=== PATIENT | male | born 1975 | race Caucasian/White ===

== ENCOUNTER → 2016-12-18 | Outpatient (CLI) | payer OTHER ==
[2016-12-18 17:30] LABS: INR 1.01
[2016-12-18 18:08] LABS: ALBUMIN 4.2 GM/DL (3.2-5.2); ALBUMIN/GLOBULIN RATIO 1.31 (1.00-1.93); ALKALINE PHOSPHATASE 129 U/L (45-117); ALT/SGPT 97 U/L (12-78); AST/SGOT 51 U/L (15-37); BILIRUBIN,DIRECT 0.1 MG/DL (0.0-0.2); BILIRUBIN,TOTAL 0.4 MG/DL (0.2-1.0); TOTAL IRON BINDING CAPACITY 367 UG/DL (250-450); TOTAL PROTEIN 7.4 GM/DL (6.4-8.2)
== END ==
LOC: M LAB 15:58
PROVIDERS: ATTEND Internal Medicine Gastroenterology
DX: R93.3 Abnormal findings on diagnostic imaging of other parts of digestive tract (principal)

== ENCOUNTER → 2017-01-03 | Outpatient (REF) | payer OTHER | LOC: M SMT 13:10 | PROVIDERS: ATTEND Urology | DX: Z30.2 Encounter for sterilization (principal) ==

== ENCOUNTER → 2017-02-16 | Outpatient (CLI) | payer OTHER ==
[2017-02-16 17:35] LABS: BASO % 0.4 % (0.0-1.0); EOS # 0.4 10^3/uL (0.0-0.50); EOS % 3.9 % (0.0-3.0); IMMATURE GRANULOCYTE % 0.2 % (0-0); LYMPH # 3.2 10^3/uL (1.5-4.5); LYMPH % 34.9 % (24.0-44.0); MEAN CORPUSCULAR HEMOGLOBIN 29.6 pg (27.0-33.0); MEAN CORPUSCULAR VOLUME 87.2 fl (80.0-96.0); MONO # 0.5 10^3/uL (0.0-0.8); MONO % 5.9 % (0.0-5.0); NEUTROPHILS # 4.9 10^3/uL (1.8-7.7); NEUTROPHILS % 54.7 % (36.0-66.0); PLATELET COUNT, AUTOMATED 279 10^3/uL (150-450); RED CELL DISTRIBUTION WIDTH 11.9 % (11.5-14.5)
[2017-02-16 17:48] LABS: INR 0.99
== END ==
LOC: M LAB 16:54
PROVIDERS: ATTEND Internal Medicine Gastroenterology
DX: R94.5 Abnormal results of liver function studies (principal)

== ENCOUNTER → 2017-02-19 | Outpatient (CLI) | payer OTHER ==
[~2017-02-19] MED LIST: LIDOCAINE 1% MDV 20ML VIAL As Ordered ONE
--- NOTE | 2017-02-19 09:44 | REP ---
ULTRASOUND GUIDED LIVER BIOPSY: The procedure was performed by JAIR Henry, under the direct supervision of Dr. Lacy. The procedure along with its risks, benefits and complications were discussed with the patient prior to the examination. Informed consent was obtained both verbally and written. Following universal protocol, patient and site verification was performed with a time out prior to the procedure. The patient was positioned in a supine position and an appropriate site within the liver was located using real-time sonography. The skin was marked, prepped and draped in the usual sterile fashion. 1% Xylocaine was used to achieve local infiltrative anesthesia. A 20-gauge Temno spring loaded biopsy device was advanced to the area of interest. A total of four core biopsy specimens were obtained with post-fire imaging documenting needle placement for each pass. The specimens were placed in formalin and will be sent to the lab for further evaluation. Results pending. Following the procedure, the wound was cleaned and compressed. A soft dressing was applied to the needle entry site. The patient was given post biopsy instructions. Patient tolerated the procedure well and had no immediate complications. IMPRESSION: Uncomplicated ultrasound guided core liver biopsy. Pathology pending. Reviewed by JAIR De León 02/19/2017 10:34 AEdited and Signed by Foreign Lacy MD 02/19/2017 04:28 P
== END ==
LOC: M RADPRO 08:05
PROVIDERS: ATTEND Internal Medicine Gastroenterology
DX: R94.5 Abnormal results of liver function studies (principal); R93.3 Abnormal findings on diagnostic imaging of other parts of digestive tract; Z79.899 Other long term (current) drug therapy; Z79.82 Long term (current) use of aspirin

== ENCOUNTER → 2017-12-01 | Outpatient (REF) | payer OTHER ==
[2017-12-01 18:37] LABS: BASO % 0.4 % (0.0-1.0); EOS # 0.4 10^3/uL (0.0-0.50); EOS % 5.8 % (0.0-3.0); HEMATOCRIT 44.4 % (42.0-52.0); HEMOGLOBIN 15.1 g/dl (13.5-17.5); IMMATURE GRANULOCYTE % 0.3 % (0-3.0); LYMPH # 3.3 10^3/uL (1.5-4.5); LYMPH % 46.2 % (24.0-44.0); MEAN CORPUSCULAR HEMOGLOBIN 30.1 pg (27.0-33.0); MEAN CORPUSCULAR VOLUME 88.4 fl (80.0-96.0); MONO # 0.6 10^3/uL (0.0-0.8); MONO % 8.3 % (0.0-5.0); NEUTROPHILS # 2.8 10^3/uL (1.8-7.7); PLATELET COUNT, AUTOMATED 286 10^3/uL (150-450); RED BLOOD COUNT 5.02 10^6/uL (4.30-6.10); WHITE BLOOD COUNT 7.1 10^3/uL (4.0-10.0)
[2017-12-01 18:58] LABS: ALBUMIN 4.1 GM/DL (3.2-5.2); ALBUMIN/GLOBULIN RATIO 1.21 (1.00-1.93); ALKALINE PHOSPHATASE 128 U/L (45-117); ALT/SGPT 48 U/L (12-78); ANION GAP 6 MEQ/L (8-16); AST/SGOT 23 U/L (7-37); BILIRUBIN,TOTAL 0.4 MG/DL (0.2-1.0); BLOOD UREA NITROGEN 13 MG/DL (7-18); CALCIUM LEVEL 8.9 MG/DL (8.5-10.1); CARBON DIOXIDE LEVEL 28 MEQ/L (21-32); CHLORIDE LEVEL 109 MEQ/L (98-107); CHOLESTEROL LEVEL 147 MG/DL (<200); CHOLESTEROL RISK RATIO 3.585 (<5); CREATININE FOR GFR 1.04 MG/DL (0.70-1.30); GLOMERULAR FILTRATION RATE > 60.0 (>60); GLUCOSE, FASTING 102 MG/DL (70-100); HDL CHOLESTEROL 41 MG/DL (>40); NON-HDL-C 106 MG/DL; POTASSIUM SERUM 4.5 MEQ/L (3.5-5.1); SODIUM LEVEL 143 MEQ/L (136-145); TOTAL PROTEIN 7.5 GM/DL (6.4-8.2); TRIGLYCERIDES LEVEL 135 MG/DL (<150)
[2017-12-03 09:10] LABS: TOTAL 25(OH) VITAMIN D 29.4 NG/ML (30.0-100.0)
== END ==
LOC: M SFHCADAM 11:33
DX: K76.0 Fatty (change of) liver, not elsewhere classified (principal); F17.290 Nicotine dependence, other tobacco product, uncomplicated; E66.9 Obesity, unspecified

== ENCOUNTER → 2017-12-11 | Outpatient (CLI) | payer OTHER | LOC: M ADAMS 16:18 | DX: M25.552 Pain in left hip (principal); M25.551 Pain in right hip | CPT/HCPCS: 73502; 73521 ==

== ENCOUNTER → 2019-02-21 | Outpatient (REF) | payer OTHER ==
[2019-02-21 12:46] LABS: BASO # 0.1 10^3/uL (0.0-0.2); BASO % 0.8 % (0.0-1.0); EOS # 0.3 10^3/uL (0.0-0.5); EOS % 5.8 % (0.0-3.0); HEMATOCRIT 44.3 % (42.0-52.0); HEMOGLOBIN 15.3 g/dl (13.5-17.5); LYMPH # 2.2 10^3/uL (1.5-5.0); LYMPH % 37.4 % (24.0-44.0); MEAN CORPUSCULAR HEMOGLOBIN 30.8 pg (27.0-33.0); MEAN CORPUSCULAR HGB CONC 34.5 g/dl (32.0-36.5); MEAN CORPUSCULAR VOLUME 89.3 fl (80.0-96.0); MONO # 0.5 10^3/uL (0.0-0.8); MONO % 8.7 % (0.0-5.0); NEUTROPHILS # 2.8 10^3/uL (1.5-8.5); NEUTROPHILS % 47.1 % (36.0-66.0); PLATELET COUNT, AUTOMATED 285 10^3/uL (150-450); RED BLOOD COUNT 4.96 10^6/uL (4.30-6.10); WHITE BLOOD COUNT 5.9 10^3/uL (4.0-10.0)
[2019-02-21 13:09] LABS: ALBUMIN 4.4 GM/DL (3.2-5.2); ALT/SGPT 71 U/L (12-78); BILIRUBIN,TOTAL 0.5 MG/DL (0.2-1.0); BLOOD UREA NITROGEN 12 MG/DL (7-18); CARBON DIOXIDE LEVEL 31 MEQ/L (21-32); CHLORIDE LEVEL 104 MEQ/L (98-107); CHOLESTEROL LEVEL 129 MG/DL (<200); CHOLESTEROL RISK RATIO 3.146 (<5); CREATININE FOR GFR 1.11 MG/DL (0.70-1.30); GLOMERULAR FILTRATION RATE > 60.0 (>60); GLUCOSE, FASTING 115 MG/DL (70-100); HDL CHOLESTEROL 41 MG/DL (>40); LDL CHOLESTEROL 63 MG/DL (<100); NON-HDL-C 88 MG/DL; POTASSIUM SERUM 4.5 MEQ/L (3.5-5.1); SODIUM LEVEL 140 MEQ/L (136-145); TRIGLYCERIDES LEVEL 126 MG/DL (<150)
[2019-02-23 00:06] LABS: TESTOSTERONE FREE (DIRECT) 11.2 pg/mL (6.8-21.5)
== END ==
LOC: M SFHCADAM 09:40
PROVIDERS: ATTEND Physician Assistant Medical
DX: K76.0 Fatty (change of) liver, not elsewhere classified (principal); F17.290 Nicotine dependence, other tobacco product, uncomplicated; E66.9 Obesity, unspecified

== ENCOUNTER → 2019-03-29 | Outpatient (CLI) | payer OTHER ==
[2019-03-31 09:16] LABS: FOLLICLE STIMULATING HORMONE 5.4 mIU/mL (1.4-18.1); PROLACTIN 12.3 NG/ML (2.1-17.7)
[2019-04-02 16:09] LABS: TESTOSTERONE %FREE+WEAKLY BOUN 53.8 % (9.0-46.0); TESTOSTERONE FREE+WEAKLY BOUND 186.7 ng/dL (40.0-250.0); TESTOSTERONE TOTAL 347 ng/dL (264-916)
== END ==
LOC: M ADAMS 09:43
PROVIDERS: ATTEND Nurse Practitioner Family
DX: E29.1 Testicular hypofunction (principal)

== ENCOUNTER → 2019-04-12 | Outpatient (CLI) | payer OTHER | LOC: M ADAMS 08:38 | PROVIDERS: ATTEND Nurse Practitioner Family | DX: E29.1 Testicular hypofunction (principal) ==

== ENCOUNTER 2019-05-25 00:23 | Inpatient (IN) | payer OTHER ==
[2019-05-25] VITALS (8 sets, daily range): BP systolic 103–127; BP diastolic 53–73
[~2019-05-25] VITALS: Ht 175.3 cm; Wt 99.9 kg
[2019-05-25] MEDS ORDERED: ATOR40TA75 PO (00:28)
[2019-05-25] MEDS ORDERED: NORCO, ANEXSIA 5/325MG TABLET (HYDROcodone/ACETAMINOPHEN) PO ONE (01:30)
[2019-05-25] MEDS ORDERED: LIDOCAINE 2% MDV 20 ML VIAL SC ONE (01:45)
[2019-05-25] MEDS ORDERED: FISH1000 PO (02:51)
[2019-05-25] MEDS ORDERED: VITA400C53 PO (02:51)
[2019-05-25] MEDS ORDERED: COQ1200C3 PO (02:51)
[2019-05-25] MEDS ORDERED: MULTCAP PO (02:51)
[2019-05-25 03:37] LABS: BASO # 0.1 10^3/uL (0.0-0.2); BASO % 0.6 % (0.0-1.0); EOS # 0.3 10^3/uL (0.0-0.5); EOS % 2.6 % (0.0-3.0); HEMATOCRIT 42.8 % (42.0-52.0); HEMOGLOBIN 14.3 g/dl (13.5-17.5); LYMPH # 2.2 10^3/uL (1.5-5.0); LYMPH % 20.5 % (24.0-44.0); MEAN CORPUSCULAR HEMOGLOBIN 29.2 pg (27.0-33.0); MEAN CORPUSCULAR HGB CONC 33.4 g/dl (32.0-36.5); MEAN CORPUSCULAR VOLUME 87.5 fl (80.0-96.0); MONO # 0.5 10^3/uL (0.0-0.8); MONO % 4.6 % (0.0-5.0); NEUTROPHILS # 7.5 10^3/uL (1.5-8.5); NEUTROPHILS % 71.4 % (36.0-66.0); PLATELET COUNT, AUTOMATED 296 10^3/uL (150-450); RED BLOOD COUNT 4.89 10^6/uL (4.30-6.10); WHITE BLOOD COUNT 10.5 10^3/uL (4.0-10.0)
[2019-05-25 03:54] LABS: ALBUMIN 4.4 GM/DL (3.2-5.2); ALT/SGPT 70 U/L (12-78); BILIRUBIN,TOTAL 0.3 MG/DL (0.2-1.0); BLOOD UREA NITROGEN 13 MG/DL (7-18); CALCIUM LEVEL 9.1 MG/DL (8.5-10.1); CARBON DIOXIDE LEVEL 24 MEQ/L (21-32); CHLORIDE LEVEL 107 MEQ/L (98-107); CREATININE FOR GFR 1.12 MG/DL (0.70-1.30); GLOMERULAR FILTRATION RATE > 60.0 (>60); GLUCOSE, FASTING 145 MG/DL (70-100); POTASSIUM SERUM 3.9 MEQ/L (3.5-5.1); SODIUM LEVEL 139 MEQ/L (136-145); TOTAL PROTEIN 7.5 GM/DL (6.4-8.2)
--- NOTE | 2019-05-25 04:14 | REPVR ---
PROCEDURE INFORMATION: Exam: CT Right Lower Extremity Without Contrast, Ankle Exam date and time: 05/25/2019 3:09 AM Age: 43 years old Clinical indication: Injury or trauma; Fall; Initial encounter; Fracture, traumatic; Other: Trimal fracture; Ankle; Right; Trimalleolar TECHNIQUE: Imaging protocol: CT of the Right lower extremity without contrast was performed. Exam focused on the ankle. Radiation optimization: All CT scans at this facility use at least one of these dose optimization techniques: automated exposure control; mA and/or kV adjustment per patient size (includes targeted exams where dose is matched to clinical indication); or iterative reconstruction. COMPARISON: CR Ankle, Ap-Lat RIGHT 05/25/2019 2:53 AM FINDINGS: Bones/joints: There is a splint in position along the dorsal aspect of the distal calf and ankle. There is a comminuted coronally oriented mildly distracted and displaced fracture of the posterior distal tibia which communicates with a mildly displaced fracture of the medial malleolus. There is a mildly displaced and mildly angulated fracture of the distal fibular diaphysis with mild posterior angulation. There is widening of the lateral aspect of the tibiotalar joint with mild posterior subluxation of the talar dome. Numerous small fracture fragments are noted within the joint space. Soft tissues: Subcutaneous edema is noted about the ankle. There is gas in the soft tissues anteriorly which may reflect communication with the skin surface. IMPRESSION: Trimalleolar fracture of the right ankle with widening of the lateral tibiotalar joint and mild posterior subluxation of the talar dome relative to the distal tibia. Electronically signed by: Jose Raul Maldonado On 05/25/2019 04:13:44 AM
[2019-05-25] MEDS ORDERED: oxyCODONE 5MG TAB PO PRN (04:45)
[2019-05-25] MEDS: NS 1,000 ML IV SCH ×2 (05:17→13:49)
[2019-05-25] MEDS: MORPHINE 2 MG/ML 1ML VIAL (J2270) IV PRN (05:17)
[2019-05-25] MEDS ORDERED: ceFAZolin SOD 2 GM in IV 1 EA IV ONE (06:00)
--- NOTE | 2019-05-25 06:40 | ECGEPIP ---
[facility] - ED Test Date: 2019-05-25 Pat Name: CHUNG COSME Department: Room: [place] [address] Gender: Male Machine Dyer: sanjuanita : [id number] Requested By: NORAH LOZOYA PA-C Order Number: [id number] Reading MD: Smooth Leigh Measurements Intervals Mathews Rate: 85 P: 57 NV: 137 QRS: -6 QRSD: 102 T: 42 QT: 346 QTc: 412 Interpretive Statements SINUS RHYTHM NO PRIOR ECG FOR COMPARISON Electronically Signed on 05-25-2019 6:40:49 EST by Smooth Leigh
[2019-05-25] MEDS: oxyCODONE 5MG TAB PO PRN ×2 (07:27→12:16)
--- NOTE | 2019-05-25 10:56 | REP ---
RIGHT ANKLE, COMPLETE: 05/25/2019. Clinical history: Trauma. Findings: No prior study. The patient did have a concurrent tibia-fibula. Four views show a trimalleolar fracture with posterior dislocation of the talus on the tibial plafond. Distal fibular fracture with apex anterior angulation. That fracture is comminuted. Some comminution of the medial malleolar fracture. Posterior malleolar fragment also noted. The mortise joint grossly symmetric in width on the AP view, although the talus is dislocated. No talar dome osteochondral defect or fracture. Subtalar joints intact. A few small ossicles overlie the dorsal aspect talonavicular joint that may reflect old injury. No other finding. Impression: 1. Trimalleolar fracture dislocation with talus dislocated posteriorly and fracture apex angulation of the distal fibula is anterior. Electronically Signed by Donovan Laura MD 05/25/2019 08:22 P
--- NOTE | 2019-05-25 10:58 | REP ---
RIGHT TIBIA-FIBULA: 05/25/2019. Comparison: Right ankle done this same date. Clinical history: Trimalleolar. Fracture/dislocation noted on the ankle series. Findings: Four views show comminuted fracture distal fibular shaft with butterfly fragment posterior and anterior apex angulation of the fracture major fracture fragments. The posterior malleolar fracture and medial malleolar fracture are also noted. No other abnormality. Impression: 1. Trimalleolar ankle fracture/dislocation as described. Electronically Signed by Donovan Laura MD 05/25/2019 08:22 P
--- NOTE | 2019-05-25 11:05 | REP ---
AP LATERAL RIGHT ANKLE: 05/25/2019. Comparison: Fracture series ankle and tibia-fibula earlier this date. Findings: Fiberglass cast material overlies the ankle. There has been reduction of the dislocation and a trimalleolar fracture to a more anatomic alignment. Electronically Signed by Donovan Laura MD 05/25/2019 08:22 P
--- NOTE | 2019-05-25 11:05 | REP ---
CHEST PA AND LATERAL: 05/25/2019. Clinical History: trauma. Ankle fracture/dislocation. Findings: Two views show the lungs well inflated and without infiltrate, effusion, atelectasis or mass. The heart, mediastinal and hilar contours are normal. Aorta and airway intact. Bony thorax unremarkable. Impression: 1. Negative chest. Electronically Signed by Donovan Laura MD 05/25/2019 08:23 P
--- NOTE | 2019-05-25 12:24 | HPE ---
DATE OF ADMISSION: 05/25/2019 CHIEF COMPLAINT: Joint and ankle pain. HISTORY OF PRESENT ILLNESS: The patient presents today after being under the influence of alcohol, was out dancing when he had a slip and fall and immediately appreciated at that time sharp pain localized to the right ankle with inability to weight bear. The pain was made worse with range of motion and movement. There is obvious deformity. Pain was only improved with pain medications and immobilization. Patient denies any pain elsewhere. Is sharp pain of 10/10, localized globally about the ankle with clear deformity and swelling. Denies nausea or vomiting. Complete 10-system review with pertinent positives and negatives as per HPI. PAST MEDICAL HISTORY: Obstructive sleep apnea (BERTO). Hyperlipidemia. MEDICATIONS: The patient is currently only on a statin. ALLERGIES: ERYTHROMYCIN, stating gets a rash and breathing issues. PAST SURGICAL HISTORY: Vasectomy. SOCIAL HISTORY: State occasional alcohol use once every few weeks and smokes about 1/2 pack a day. Denied any illicit drug use. PHYSICAL EXAMINATION: Patient is awake, alert and oriented, well dressed, appropriate affect. Breathing unlabored on room air. Normocephalic, atraumatic. Right lower extremity: Obvious deformity. Skin is intact. Significant swelling. Posterior tibial pulses 2+,intact extensor hallucis longus (EHL), flexor hallucis longus (FHL), motor function. Sensation intact to light tough in superficial, peroneal, deep peroneal, sural, saphenous and tibial distributions. No tenderness to palpation about the knee. Left lower extremity: No tenderness to palpation throughout the entire leg. Positive EHL relative to the gastroc motor function. Sensation intact to light touch in superficial, peroneal, deep peroneal, sural, saphenous and tibial distributions. Positive EHL relative to tibia and gastroc motor function. Skin is intact post. tib 2+ regular rate. Bilateral upper extremities: No tenderness to palpation, full active range of motion of shoulders, elbows, and wrists. Skin intact. 2+ radial pulses. Sensation intact to light touch superficial, center edge, radial nerve, median nerve and ulna. Positive anterior interosseous nerve (AIN), posterior interosseous nerve (PIN) on the motor function. IMAGING REVIEWED: Tibia and fibula x-rays along with ankle demonstrating trimalleolar fracture/dislocation of the ankle. He suffered a right trimalleolar fracture/dislocation of his ankle. This is an unstable injury that will require closed reduction here in the ER along with operative intervention. We discussed the risks and benefits of this including but not limited to infection, damage to surrounding structures, incomplete relief, malunion, nonunion. Patient consented and wished to proceed. We also gave the patient a 20 mL intraarticular lidocaine block with 2% to the ankle joint. We then reduced the ankle and placed a short leg splint. Saw reduction films, demonstrated adequate reduction at this time. Patient will be admitted to my service and transferred to the orthopedic floor. He will work on aggressive elevation and pain control. Will hold off on DVT prophylaxis as we plan on having surgical intervention later today, but will start this postoperatively. He will have compression devices on his left lower extremity. He is nothing by mouth (npo) and planned for surgery. We are getting a CT scan for surgical planning of his right ankle along with preoperative lab work and imaging. BRYN
[2019-05-25] MEDS ORDERED: fentaNYL 100 MCG/2 ML INJECTION (J3010) As Ordered ONE ×2 (15:22→16:48)
[2019-05-25] MEDS ORDERED: MIDAZOLAM INJ 2 MG/2 ML VIAL (J2250) As Ordered ONE ×2 (15:22→16:48)
[2019-05-25] MEDS ORDERED: ceFAZolin 1GM INJ (J0690 PER 500MG) As Ordered ONE (16:03)
[2019-05-25] MEDS: fentaNYL 100 MCG/2 ML INJECTION (J3010) IV PRN ×2 (16:05→16:12)
[2019-05-25] MEDS: MIDAZOLAM INJ 2 MG/2 ML VIAL (J2250) IV PRN ×2 (16:05→16:12)
[2019-05-25] MEDS ORDERED: METOCLOPRAMIDE INJ 10MG/2ML VIAL (J2765) As Ordered ONE (16:48)
[2019-05-25] MEDS ORDERED: propofoL 200 MG/20 ML VIAL As Ordered ONE ×2 (16:48→18:59)
[2019-05-25] MEDS ORDERED: dexameTHASONE 4 MG/ML 1ML VIAL (J1100) As Ordered ONE (16:48)
[2019-05-25] MEDS ORDERED: ONDANSETRON 4MG/2ML VIAL (J2405) As Ordered ONE (16:48)
[2019-05-25] MEDS ORDERED: LIDOCAINE 2% INJ 100 MG/5 ML SDV (FOR ANES.) As Ordered ONE (16:48)
[2019-05-25] MEDS ORDERED: ceFAZolin 2 GM/D5W 50 ML IV BAG (J0690 PER 500MG) As Ordered ONE (16:57)
[2019-05-25] MEDS ORDERED: ROPIvacaine 0.5% 30 ML INJECTION (J2795 PER 1MG) ONE (18:43)
[2019-05-25] MEDS ORDERED: LIDOCAINE 1% MDV 20ML VIAL ONE (18:43)
[2019-05-25] MEDS ORDERED: dexameTHASONE 10 MG/1 ML VIAL PRES.FREE (J1100) ONE (18:43)
[2019-05-25] MEDS ORDERED: ONDANSETRON 4MG/2ML VIAL (J2405) IV PRN (19:30)
[2019-05-25] MEDS ORDERED: fentaNYL 100 MCG/2 ML INJECTION (J3010) IV PRN (19:30)
[2019-05-25] MEDS ORDERED: MORPHINE 2 MG/ML 1ML VIAL (J2270) IV PRN (19:30)
[2019-05-25] MEDS ORDERED: LR 1,000 ML IV SCH (19:30)
[2019-05-25] MEDS ORDERED: PERCOCET 5MG/325MG TAB PO PRN (19:30)
[2019-05-25] MEDS: NICOTINE 21MG/24HR 1 EA TRANSDERMAL TD SCH (20:50)
[2019-05-26 00:45] VITALS: BP 125/69
[2019-05-26] MEDS: ceFAZolin SOD 1 GM in D5W MINI-BAG PLUS 50 ML IV SCH ×2 (01:06→08:31)
[2019-05-26] MEDS: MORPHINE 2 MG/ML 1ML VIAL (J2270) IV PRN (01:48)
[2019-05-26 02:00] VITALS: BP 123/68
[2019-05-26] MEDS: oxyCODONE 5MG TAB PO PRN ×3 (04:38→12:52)
[2019-05-26 06:00] VITALS: BP 126/70
[2019-05-26] MEDS ORDERED: OXYC-517 PO (06:11)
[2019-05-26] MEDS ORDERED: ASPI-1 PO (06:11)
--- NOTE | 2019-05-26 08:30 | REP ---
C-ARM RIGHT ANKLE COMPLETE: 05/25/2019. Comparison: Acute fracture series 05/25/2019. Post reduction cast study 05/25/2019. Findings: Three images from C-arm fluoroscopy provided to Dr. Chavarria of the orthopedic division for ORIF of a trimalleolar fracture dislocation. Lag screw over the medial malleolar fragment reducing that, two screws in the plate posterior distal tibia and a single screw posterior anterior in the tibial plafond for posterior malleolar fracture reduction and a plate and multiple screws for the distal fibular fracture. All fractures, alignment essentially anatomic. Mortise joint reapproximated. Fluoroscopy time 2 minutes 17 seconds. Electronically Signed by Donovan Laura MD 05/26/2019 09:49 A
[2019-05-26] MEDS: NICOTINE 21MG/24HR 1 EA TRANSDERMAL TD SCH (08:32)
[2019-05-26] MEDS ORDERED: ENOXAPARIN 40 MG/0.4 ML SYRINGE (J1650) SC SCH (09:00)
[2019-05-26] MEDS ORDERED: CEPHALEXIN 500 MG CAP PO ONE ×2 (09:00→13:00)
--- NOTE | 2019-05-26 09:37 | RO ---
DATE OF PROCEDURE: 05/25/2019 PREPROCEDURE DIAGNOSIS: Right trimalleolar ankle fracture dislocation. POSTPROCEDURE DIAGNOSIS: Right trimalleolar ankle fracture dislocation. PROCEDURE: Right open reduction, internal fixation (ORIF) of trimalleolar ankle fracture, including posterior lip. SURGEON: Valdo Chavarria MD REPRODUCTION MACHINE LOADER: None ANESTHESIA: Spinal with peripheral nerve block. COMPLICATIONS: None. TOURNIQUET TIME: Approximately 2 hours. BLOOD LOSS: Minimal. PREOPERATIVE ANTIBIOTICS: 2 grams of Ancef. INDICATION: This is a 44-year-old male that suffered a fracture dislocation. We discussed how this was an unstable injury that required operative intervention. We discussed the risks and benefits, including but not limited to infection, damage to surrounding structures, incomplete relief. The patient expressed understanding and was in agreement with this plan. DESCRIPTION OF PROCEDURE: The patient was brought back to the operating room and placed in supine position. He underwent spinal anesthesia. At this point, he was placed in a prone position. The right leg was then prepped and draped in the usual fashion. We then had a time out confirming the site, side and surgery. Once in agreement, I elevated the tourniquet up to 250 mmHg. I then made a longitudinal incision on the posterior aspect of the fibula for a posterolateral approach to the fibula and posterior tibia. We dissected subcutaneous and identified the superficial peroneal and surreal nerves and preserved them, retracted them out of the way, exposing the fracture of the lateral aspect of the lateral malleolus. We irrigated the wound and sharply debrided it with curettes and 15-blade and irrigation and suction. We then used a combination of pointer points and lobster claws to obtain our reduction, which was confirmed on AP and lateral films. We then placed a 2 cm lag screw. Once this was done, we used a one-third tubular plate from the distal fibula proximally and secured it in place with a working . Then placed remaining screws in place at the cortical with one locking on either end. Once we confirmed in AP and lateral adequate fixation and reduction, we then turned out attention to the posterior malleolus. We incised the lateral component and retracted the peroneal nerve laterally, exposing the EHL. We lifted the EHL to the posterior tibia. We then identified the posterior malleolus fracture. We propped it open and impacted articular surface and reduced it. We then irrigated the wound thoroughly, removing any other debris with a combination of irrigation, suction and 15 blade. We then used a ball spike pusher to reduce the fracture and held it in place with 1.6 K wire. We then placed a 2 cm lag screw, lagging the posterior malleolus to the distal tibia. Once we were happy with this, we placed plate, 4-hold one-third tubular. We were happy with our reduction in both AP and lateral. We then bent the knee and lifted the leg up to make an anterior incision over the medial malleolus. Identified the medial malleolus fracture. Also, the medial malleolar extent to the posterior malleolus. At this point, I felt that it was adequate reduced and secured with our posterior fixation. Therefore, we used a point to point reduction clamp and reduced the anterior corpus in the medial malleolus. We then used a 4-0 cannulated screw size 42 and secured this. We confirmed this on AP and lateral films. We were happy with reduction. At this point, we also stressed to evaluate the syndesmosis. At this point, there was no medial widening or talar tilt. We were happy with our fixation. Final films confirmed adequate reduction and fixation of all three malleoli and the stability of syndesmosis. We irrigated the wound thoroughly. Closed the peroneal fascia with 2-0 Vicryl, subcutaneous tissue with 2-0 Vicryl and subcutaneous tissue on the medial aspect with 2-0 Vicryl. We then closed the skin with daryn. Placed the patient in a posterior slab splint. The patient was awakened from anesthesia and taken to the postanesthesia care unit (PACU) in stable condition. POSTOPERATIVE PLAN: The patient will work on pain control and elevation. He will be non-weightbearing. He will placed on antibiotic prophylaxis. He will be placed on deep vein thrombosis (DVT) prophylaxis. We will see him approximately 2 weeks out for a skin check and staple removal and can move over to a Cam boot, maintaining a non-weightbearing status for an additional 4 weeks, 6 weeks total, but he may work on ankle range of motion in the meantime.
[2019-05-26 14:00] VITALS: BP 128/73
== END 2019-05-26 16:00 | disposition home or self-care (01) | DRG 494 ==
LOC: M ED 00:23 → M ED INP 03:00 → ENRESERV 03:11 → M MS5PR 03:55
PROVIDERS: ADMIT Orthopaedic Surgery Hand Surgery; ATTEND Orthopaedic Surgery Hand Surgery
PROC: 0QSJ04Z Reposition Right Fibula with Internal Fixation Device, Open Approach (ICD-10-PCS; 2019-05-25)
PROC: 0QSG04Z Reposition Right Tibia with Internal Fixation Device, Open Approach (ICD-10-PCS; principal; 2019-05-25 08:30)
DX: S82.851A Displaced trimalleolar fracture of right lower leg, initial encounter for closed fracture (principal); Y93.41 Activity, dancing; Y92.89 Other specified places as the place of occurrence of the external cause; Y99.8 Other external cause status; W18.09XA Striking against other object with subsequent fall, initial encounter; F17.200 Nicotine dependence, unspecified, uncomplicated; G47.33 Obstructive sleep apnea (adult) (pediatric); E78.5 Hyperlipidemia, unspecified; Z79.899 Other long term (current) drug therapy; Z88.1 Allergy status to other antibiotic agents; Z72.89 Other problems related to lifestyle

== ENCOUNTER 2019-06-23 17:43 | Emergency (ER) | payer OTHER ==
[~2019-06-23] VITALS: Ht 175.3 cm; Wt 98.6 kg
[~2019-06-23 17:43] MED LIST changes: +ASPI-1 PO; +ATOR40TA75 PO; +COQ1200C3 PO; +FISH1000 PO; -LIDOCAINE 1% MDV 20ML VIAL As Ordered ONE; +MULTCAP PO; +OXYC-517 PO; +VITA400C53 PO
--- NOTE | 2019-06-23 18:46 | REP ---
Right foot series: Four views. History: Swelling and discoloration. Findings: The patient is status post recent open reduction internal fixation for trimalleolar ankle fracture. No tarsal or metatarsal fracture is appreciated. Impression: Status post open reduction internal fixation screw plating surgery for trimalleolar ankle fracture. No foot fracture is appreciated. Electronically Signed by Leandro Shin MD 06/23/2019 06:37 P
--- NOTE | 2019-06-23 21:22 | REPVR ---
PROCEDURE INFORMATION: Exam: US Duplex Right Lower Extremity Veins, Limited Exam date and time: 06/23/2019 8:45 PM Age: 43 years old Clinical indication: Edema, localized; Lower extremity, right; Prior surgery; Surgery date: 1-6 months; Surgery type: Tib/fib repair; Additional info: Rle swelling; R/O dvt TECHNIQUE: Imaging protocol: Real-time Duplex ultrasound of the Right Lower Extremity with 2-D mcneil scale, color Doppler flow and spectral waveform analysis with image documentation. Limited exam was focused on the right lower extremity veins. COMPARISON: No relevant prior studies available. FINDINGS: Right deep veins: Unremarkable. The common femoral, femoral, proximal profunda femoral and popliteal veins are patent without thrombus. Normal Doppler waveforms. Normal compressibility and/or augmentation response. Right superficial veins: Unremarkable. Saphenofemoral junction is patent without thrombus. Soft tissues: Unremarkable. IMPRESSION: No acute findings. No evidence of deep vein thrombosis. Electronically signed by: Mariposa Agarwal On 06/23/2019 21:22:19 PM
[2019-06-23 22:05] VITALS: BP 128/81
--- NOTE | 2019-06-25 06:35 | CR ---
DATE OF CONSULTATION: 06/23/2019 CHIEF COMPLAINT: Right leg swelling and discoloration. HISTORY OF PRESENT ILLNESS: Patient presented to the emergency room (ER) today after having continued right leg swelling and discoloration. Patient states that his pain is normally controlled. When he is in dependent position, he has increased pain up to a 5-6 out of 10 that is a dull ache in nature, along with increasing discoloration of his foot to blue and purple at times; however, this completely resolves as soon as he elevates. Of note, the patient is postoperative for open reduction and internal fixation (ORIF) of his trimalleolar ankle fracture from 05/25/2019, which was approximately 1 month ago. He denies any fevers, chills, nausea, or vomiting. He is taking [id number] pain medications for pain control. Denies any calf tenderness or trouble breathing or any chest pains. Complete 10-system review was conducted, pertinent positives and negatives in history of present illness (HPI). All other systems negative. PAST MEDICAL HISTORY: Obstructive sleep apnea (BERTO). Hyperlipidemia. Patient is currently only on a statin. ALLERGIES: ERYTHROMYCIN, giving a rash and breathing issues. PAST SURGICAL HISTORY: Vasectomy. SOCIAL HISTORY: Patient occasionally uses alcohol a few times a year. He smokes about a half a pack of cigarettes a day. Denies any illicit drug use. Socially, he lives at home with his . PHYSICAL EXAMINATION: Patient is awake, alert, oriented, well dressed, appropriate affect, breathing well on room air. Normocephalic, atraumatic. Right lower extremity: Incisions are well healed. No surrounding erythema or drainage. He has intact extensor hallucis longus (EHL), flexor hallucis longus (FHL), tibial, and gastroc motor function. Sensation intact to light touch superficial sensory branch of the peroneal, deep peroneal, sural, saphenous, and tibial distributions. No tenderness to palpation. Calf is soft, supple, and nontender. Skin is intact. I was able to see what the patient was talking about when you put the patient in the dependent position, the patient's foot does become an increasing bluish hue that resolves with elevation. Imaging of the foot was completed along with ultrasound that was negative for deep venous thrombosis (DVT) and negative for any acute fracture or dislocation. There remained intact hardware from previous surgery. I discussed with the patient that he is having dependent edema. This is normal after surgery in this sort of injury, that if he is having increasing pain with the dependent position, he is to continue to elevate. Otherwise, he will continue his non-weightbearing status. I will see him in the office as scheduled in approximately 2 weeks where we will hopefully be advancing his weightbearing. We did discuss red flag symptoms, fevers, chills, nausea, vomiting, other signs of systemic illness, in which case he should call the office or return to the ER for further evaluation. Patient expressed understanding and agreements with that plan.
== END 2019-06-23 22:07 | disposition home or self-care (01) ==
LOC: M ED 17:43
DX: R60.9 Edema, unspecified (principal); T88.9XXA Complication of surgical and medical care, unspecified, initial encounter; E78.5 Hyperlipidemia, unspecified; M54.9 Dorsalgia, unspecified; G89.29 Other chronic pain; G47.30 Sleep apnea, unspecified; F17.210 Nicotine dependence, cigarettes, uncomplicated; Z79.899 Other long term (current) drug therapy; Z88.1 Allergy status to other antibiotic agents

== ENCOUNTER → 2020-02-16 | Outpatient (REF) | payer OTHER ==
[2020-02-16 17:41] LABS: BASO # 0.1 10^3/uL (0.0-0.2); BASO % 0.9 % (0.0-1.0); EOS # 0.3 10^3/uL (0.0-0.5); EOS % 3.7 % (0.0-3.0); HEMATOCRIT 44.9 % (42.0-52.0); HEMOGLOBIN 14.8 g/dl (13.5-17.5); LYMPH # 2.8 10^3/uL (1.5-5.0); LYMPH % 39.4 % (24.0-44.0); MEAN CORPUSCULAR HEMOGLOBIN 29.4 pg (27.0-33.0); MEAN CORPUSCULAR VOLUME 89.1 fl (80.0-96.0); MONO # 0.5 10^3/uL (0.0-0.8); MONO % 7.2 % (0.0-5.0); NEUTROPHILS # 3.4 10^3/uL (1.5-8.5); NEUTROPHILS % 48.7 % (36.0-66.0); PLATELET COUNT, AUTOMATED 312 10^3/uL (150-450); RED BLOOD COUNT 5.04 10^6/uL (4.30-6.10)
[2020-02-16 17:49] LABS: ALBUMIN 4.6 GM/DL (3.2-5.2); ALT/SGPT 82 U/L (12-78); BILIRUBIN,TOTAL 0.6 MG/DL (0.2-1.0); BLOOD UREA NITROGEN 11 MG/DL (7-18); CALCIUM LEVEL 9.6 MG/DL (8.5-10.1); CARBON DIOXIDE LEVEL 29 MEQ/L (21-32); CHLORIDE LEVEL 107 MEQ/L (98-107); CHOLESTEROL LEVEL 119 MG/DL (<200); CHOLESTEROL RISK RATIO 3.131 (<5); CREATININE FOR GFR 1.04 MG/DL (0.70-1.30); GLOMERULAR FILTRATION RATE > 60.0 (>60); GLUCOSE, FASTING 87 MG/DL (70-100); HDL CHOLESTEROL 38 MG/DL (>40); LDL CHOLESTEROL 58 MG/DL (<100); NON-HDL-C 81 MG/DL; POTASSIUM SERUM 4.3 MEQ/L (3.5-5.1); SODIUM LEVEL 140 MEQ/L (136-145); TOTAL PROTEIN 7.8 GM/DL (6.4-8.2); TRIGLYCERIDES LEVEL 114 MG/DL (<150)
== END ==
LOC: M SFHCADAM 14:28
PROVIDERS: ATTEND Physician Assistant Medical
DX: G47.33 Obstructive sleep apnea (adult) (pediatric) (principal); F17.290 Nicotine dependence, other tobacco product, uncomplicated; K76.0 Fatty (change of) liver, not elsewhere classified; E66.9 Obesity, unspecified

== ENCOUNTER → 2020-03-22 | Outpatient (CLI) | payer OTHER ==
[2020-03-22 19:50] LABS: BASO # 0.1 10^3/uL (0.0-0.2); BASO % 0.6 % (0.0-1.0); EOS # 0.3 10^3/uL (0.0-0.5); EOS % 3.4 % (0.0-3.0); HEMATOCRIT 43.2 % (42.0-52.0); HEMOGLOBIN 14.2 g/dl (13.5-17.5); LYMPH # 3.3 10^3/uL (1.5-5.0); LYMPH % 34.1 % (24.0-44.0); MEAN CORPUSCULAR HEMOGLOBIN 28.7 pg (27.0-33.0); MEAN CORPUSCULAR HGB CONC 32.9 g/dl (32.0-36.5); MEAN CORPUSCULAR VOLUME 87.4 fl (80.0-96.0); MONO # 0.8 10^3/uL (0.0-0.8); MONO % 8.3 % (0.0-5.0); NEUTROPHILS # 5.1 10^3/uL (1.5-8.5); NEUTROPHILS % 53.3 % (36.0-66.0); PLATELET COUNT, AUTOMATED 298 10^3/uL (150-450); RED BLOOD COUNT 4.94 10^6/uL (4.30-6.10); WHITE BLOOD COUNT 9.5 10^3/uL (4.0-10.0)
[2020-03-22 20:21] LABS: ALBUMIN 4.7 GM/DL (3.2-5.2); ALT/SGPT 65 U/L (12-78); BILIRUBIN,TOTAL 0.7 MG/DL (0.2-1.0); BLOOD UREA NITROGEN 8 MG/DL (7-18); CALCIUM LEVEL 9.9 MG/DL (8.5-10.1); CARBON DIOXIDE LEVEL 28 MEQ/L (21-32); CHLORIDE LEVEL 106 MEQ/L (98-107); GLOMERULAR FILTRATION RATE > 60.0 (>60); GLUCOSE, FASTING 70 MG/DL (70-100); POTASSIUM SERUM 3.8 MEQ/L (3.5-5.1); SODIUM LEVEL 140 MEQ/L (136-145); TOTAL PROTEIN 7.7 GM/DL (6.4-8.2)
[2020-03-24 13:08] LABS: Lyme Disease IgG/IgM Antibodie <0.91 ISR (0.00-0.90); Lyme Disease IgM Ab Quantitati <0.80 index (0.00-0.79)
== END ==
LOC: M WUC 18:26
PROVIDERS: ATTEND Physician Assistant
DX: M79.10 Myalgia, unspecified site (principal)

== ENCOUNTER → 2020-07-15 | Outpatient (CLI) | payer OTHER ==
--- NOTE | 2020-07-16 07:04 | REP ---
INDICATION: MASS OF LEFT TESTICLE COMPARISON: None. TECHNIQUE: Lacy scale and color Doppler evaluation using linear and curved array transducer with color Doppler evaluation. FINDINGS: Right testicle measures 4.4 x 2.1 x 3.1 cm and includes multiple calcifications along with 5 mm epididymal head cyst. No evidence for torsion, infectious/inflammatory process, or mass. No significant hydrocele. No varicocele. Left testicle measures 4.3 x 2.0 x 3.1 cm and includes multiple calcifications along with few small epididymal head cysts measuring up to 3 mm. Patient's palpable mass corresponds to 4 x 5 x 5 mm tunica cyst. No evidence for torsion, infectious/inflammatory process, or mass. A 5 mm left scrotal neris is also identified. No significant hydrocele. No varicocele. IMPRESSION: Few nonspecific benign appearing epididymal and left tunica cysts as noted above. Few scattered testicular parenchymal calcifications noted bilaterally. No testicular mass lesion. <Electronically signed by Daniel Lehman > 07/16/20 0700
== END ==
LOC: M RAD 16:16
PROVIDERS: ATTEND Physician Assistant Medical
DX: N50.3 Cyst of epididymis (principal)

== ENCOUNTER → 2021-01-15 | Outpatient (REF) | payer OTHER | LOC: M WUC 18:34 | PROVIDERS: ATTEND Physician Assistant | DX: J06.9 Acute upper respiratory infection, unspecified (principal) ==

== ENCOUNTER → 2022-09-12 | Outpatient (REF) | payer OTHER ==
[2022-09-12 13:12] LABS: ALBUMIN 4.2 G/DL (3.2-5.2); ALKALINE PHOSPHATASE 114 U/L (46-116); ALT/SGPT 50 U/L (7.0-40); AST/SGOT 28 U/L (<34); BILIRUBIN,TOTAL 0.5 MG/DL (0.3-1.2); BLOOD UREA NITROGEN 14 MG/DL (9-23); CALCIUM LEVEL 9.6 MG/DL (8.5-10.1); CARBON DIOXIDE LEVEL 28 MMOL/L (20-31); CHLORIDE LEVEL 105 MMOL/L (98-107); CHOLESTEROL LEVEL 198 MG/DL (<200); CHOLESTEROL RISK RATIO 5.01 (<5); GLOMERULAR FILTRATION RATE > 60.0 (>60); GLUCOSE, FASTING 117 MG/DL (60-100); HDL CHOLESTEROL 39.5 MG/DL (>40); LDL CHOLESTEROL 119.1 MG/DL (<100); NON-HDL-C 158.5 MG/DL; POTASSIUM SERUM 4.6 MMOL/L (3.5-5.1); SODIUM LEVEL 140 MMOL/L (136-145); TOTAL PROTEIN 7.2 G/DL (5.7-8.2); TRIGLYCERIDES LEVEL 197 MG/DL (<150)
[2022-09-12 13:13] LABS: BASO % 0.7 % (0.0-1.0); EOS # 0.4 10^3/uL (0.0-0.5); EOS % 6.9 % (0.0-3.0); LYMPH # 1.9 10^3/uL (1.5-5.0); LYMPH % 33.8 % (24.0-44.0); MEAN CORPUSCULAR HEMOGLOBIN 29.4 pg (27.0-33.0); MEAN CORPUSCULAR HGB CONC 33.3 g/dl (32.0-36.5); MEAN CORPUSCULAR VOLUME 88.2 fl (80.0-96.0); MONO # 0.5 10^3/uL (0.0-0.8); MONO % 9.2 % (2.0-8.0); NEUTROPHILS # 2.7 10^3/uL (1.5-8.5); NEUTROPHILS % 49.2 % (36.0-66.0); PLATELET COUNT, AUTOMATED 264 10^3/uL (150-450); WHITE BLOOD COUNT 5.5 10^3/uL (4.0-10.0)
[2022-09-12 13:14] LABS: TOTAL 25(OH) VITAMIN D 32.8 NG/ML (20.0-100.0)
== END ==
LOC: M SFHCADAM 08:40
PROVIDERS: ATTEND Physician Assistant Medical
DX: Z00.00 Encounter for general adult medical examination without abnormal findings (principal); G47.33 Obstructive sleep apnea (adult) (pediatric); E66.9 Obesity, unspecified; F17.290 Nicotine dependence, other tobacco product, uncomplicated; K76.0 Fatty (change of) liver, not elsewhere classified

== ENCOUNTER → 2023-09-29 | Outpatient (CLI) | payer OTHER ==
[2023-09-29 10:48] LABS: BASO # 0.1 10^3/uL (0.0-0.2); BASO % 0.6 % (0.0-1.0); EOS # 0.4 10^3/uL (0.0-0.5); EOS % 5.2 % (0.0-3.0); HEMATOCRIT 42.4 % (42.0-52.0); HEMOGLOBIN 14.8 g/dl (13.5-17.5); LYMPH # 2.3 10^3/uL (1.5-5.0); LYMPH % 30.3 % (24.0-44.0); MEAN CORPUSCULAR HEMOGLOBIN 30.2 pg (27.0-33.0); MEAN CORPUSCULAR HGB CONC 34.9 g/dl (32.0-36.5); MEAN CORPUSCULAR VOLUME 86.5 fl (80.0-96.0); MONO # 0.8 10^3/uL (0.0-0.8); MONO % 10.1 % (2.0-8.0); NEUTROPHILS # 4.1 10^3/uL (1.5-8.5); NEUTROPHILS % 53.5 % (36.0-66.0); PLATELET COUNT, AUTOMATED 267 10^3/uL (150-450); WHITE BLOOD COUNT 7.7 10^3/uL (4.0-10.0)
[2023-09-29 11:10] LABS: ALKALINE PHOSPHATASE 151 U/L (46-116); ALT/SGPT 55 U/L (7.0-40); AST/SGOT 20 U/L (<34); BILIRUBIN,TOTAL 0.6 MG/DL (0.3-1.2); BLOOD UREA NITROGEN 11 MG/DL (9-23); CALCIUM LEVEL 9.4 MG/DL (8.5-10.1); CARBON DIOXIDE LEVEL 27 MMOL/L (20-31); CHLORIDE LEVEL 106 MMOL/L (98-107); CHOLESTEROL LEVEL 212 MG/DL (<200); CHOLESTEROL RISK RATIO 6.16 (<5); GLOMERULAR FILTRATION RATE > 60.0 (>60); GLUCOSE, FASTING 129 MG/DL (60-100); HDL CHOLESTEROL 34.4 MG/DL (>40); LDL CHOLESTEROL 132.8 MG/DL (<100); NON-HDL-C 177.6 MG/DL; POTASSIUM SERUM 4.3 MMOL/L (3.5-5.1); SODIUM LEVEL 139 MMOL/L (136-145); TOTAL PROTEIN 7.1 G/DL (5.7-8.2); TRIGLYCERIDES LEVEL 224 MG/DL (<150)
[2023-09-29 11:13] LABS: THYROID STIMULATING HORMONE 1.152 uIU/ML (0.55-4.78); TOTAL 25(OH) VITAMIN D 29.5 NG/ML (20.0-100.0)
== END ==
LOC: M LAB 10:10
PROVIDERS: ATTEND Physician Assistant Medical
DX: Z00.00 Encounter for general adult medical examination without abnormal findings (principal); F17.290 Nicotine dependence, other tobacco product, uncomplicated; E66.9 Obesity, unspecified; K76.0 Fatty (change of) liver, not elsewhere classified; G47.33 Obstructive sleep apnea (adult) (pediatric)

== ENCOUNTER 2023-10-31 07:31 | Day surgery (SDC) | payer OTHER ==
[~2023-10-31] VITALS: Ht 177.8 cm; Wt 100.7 kg
[~2023-10-31 07:31] MED LIST changes: +NS 1,000 ML IV ONE; +OMEG10002 PO; +THERTAB52 PO; +VITA400T26 PO
[2023-10-31] MEDS ORDERED: LIDOCAINE 2% 100MG/5ML SDV (FOR ANES.) As Ordered ONE (08:54)
[2023-10-31] MEDS ORDERED: propofoL 200 MG/20 ML VIAL As Ordered ONE (08:54)
[2023-10-31 09:40] VITALS: BP 118/68; TEMP 96.8; O2SAT 98
== END 2023-10-31 09:46 | disposition home or self-care (01) ==
LOC: M OPP 07:31
PROVIDERS: ATTEND Surgery
DX: Z12.11 Encounter for screening for malignant neoplasm of colon (principal); K64.0 First degree hemorrhoids; K57.30 Diverticulosis of large intestine without perforation or abscess without bleeding; Z88.1 Allergy status to other antibiotic agents

== ENCOUNTER → 2024-09-06 | Outpatient (CLI) | payer OTHER ==
[~2024-09-06] MED LIST changes: -NS 1,000 ML IV ONE
[2024-09-06 12:42] LABS: ALBUMIN 4.2 G/DL (3.2-5.2); ALKALINE PHOSPHATASE 121 U/L (40-129); ALT/SGPT 80 U/L (7.0-40); AST/SGOT 39 U/L (<34); BILIRUBIN,TOTAL 0.6 MG/DL (0.3-1.2); BLOOD UREA NITROGEN 14 MG/DL (9-23); CALCIUM LEVEL 9.5 MG/DL (8.5-10.1); CARBON DIOXIDE LEVEL 28 MMOL/L (20-31); CHLORIDE LEVEL 107 MMOL/L (98-107); CHOLESTEROL LEVEL 238 MG/DL (<200); CHOLESTEROL RISK RATIO 6.46 (<5); GLOMERULAR FILTRATION RATE > 90.0 (>60); GLUCOSE, FASTING 136 MG/DL (60-100); HDL CHOLESTEROL 36.8 MG/DL (>40); NON-HDL-C 201.2 MG/DL; POTASSIUM SERUM 4.3 MMOL/L (3.5-5.1); SODIUM LEVEL 141 MMOL/L (136-145); TOTAL PROTEIN 7.4 G/DL (5.7-8.2); TRIGLYCERIDES LEVEL 231 MG/DL (<150)
[2024-09-06 12:43] LABS: TOTAL 25(OH) VITAMIN D 21.6 NG/ML (20.0-100.0)
[2024-09-06 12:44] LABS: THYROID STIMULATING HORMONE 0.904 uIU/ML (0.55-4.78)
== END ==
LOC: M LAB 11:44
PROVIDERS: ATTEND Physician Assistant Medical
DX: Z00.00 Encounter for general adult medical examination without abnormal findings (principal); F17.290 Nicotine dependence, other tobacco product, uncomplicated; E66.9 Obesity, unspecified; K76.0 Fatty (change of) liver, not elsewhere classified; G47.33 Obstructive sleep apnea (adult) (pediatric)